=== PATIENT | female | born 1995 | race African-American/Black ===

== ENCOUNTER 2019-12-05 04:25 | Emergency (ER) | payer MEDICAID ==
[~2019-12-05] VITALS: Ht 152.4 cm; Wt 54.4 kg
--- NOTE | 2019-12-05 04:35 | NUR ---
PT SUZAN FROM HER FRIENDS HOUSE. PT STATED SHE IS SI, TOOK XANAX. -HI. PT PLACED IN HOSPITAL GOWN, ON MONITOR AND PULSE OX. VSS. BELONINGS PLACED IN LOCKER. SITTER AT BEDSIDE.
--- NOTE | 2019-12-05 04:41 | NUR ---
URINE PROVIDED, SENT TO LAB.
--- NOTE | 2019-12-05 04:48 | NUR ---
TURN OUT WORKER AT BEDSIDE FOR LABS.
[2019-12-05 05:10] LABS: BASOPHILS # (AUTO) 0.1 /CMM (0.0-0.2); BASOPHILS % (AUTO) 0.6 % (0.0-2.0); EOSINOPHILS % (AUTO) 0.2 % (0.0-6.0); HEMATOCRIT 40 % (33-45); HEMOGLOBIN 12.6 g/dL (11.5-14.8); LYMPHOCYTES # (AUTO) 4.3 /CMM (0.8-4.8); LYMPHOCYTES % (AUTO) 45.3 % (20.0-44.0); MEAN CORPUSCULAR HGB CONC 32 g/dl (31.0-36.0); MEAN CORPUSCULAR VOLUME 78 fL (82-100); MONOCYTES # (AUTO) 0.6 /CMM (0.1-1.30); MONOCYTES % (AUTO) 6.2 % (2.0-12.0); NEUTROPHILS # (AUTO) 4.5 /CMM (1.8-8.9); NEUTROPHILS % (AUTO) 47.7 % (43.0-81.0); PLATELET COUNT (AUTO) 409 /CMM (150-450); WHITE BLOOD COUNT (AUTO) 9.5 K/uL (4.3-11.0)
[2019-12-05 05:12] LABS: APPEARANCE,URINE CLEAR (CLEAR); BILIRUBIN,URINE NEGATIVE (NEGATIVE); BLOOD, URINE NEGATIVE Ery/uL (NEGATIVE); COLOR,URINE YELLOW (YELLOW); KETONES,URINE NEGATIVE (NEGATIVE); LEUKOCYTE ESTERASE ,URINE SMALL (NEGATIVE); NITRITE, URINE NEGATIVE (NEGATIVE); PH,URINE 6.5 (5.0-8.0); PROTEIN,URINE NEGATIVE (NEGATIVE); UGLUCOSE NEGATIVE (NEGATIVE); UROBILINOGEN,URINE 0.2 EU/dL (0.2)
[2019-12-05 05:18] LABS: CALCIUM, SERUM 9.7 mg/dL (8.5-10.1); CARBON DIOXIDE 26 mmol/L (21-32); CHLORIDE 101 mmol/L (98-107); CREATININE 0.9 mg/dL (0.6-1.3); GLUCOSE 86 mg/dL (74-106); POTASSIUM 3.6 mmol/L (3.5-5.1); SODIUM SERUM 136 mmol/L (136-145); UREA NITROGEN, BLOOD 12 mg/dL (7-18)
[2019-12-05 05:24] LABS: ALANINE AMINOTRANSFERASE 14 U/L (12-78); ALBUMIN 4.5 g/dL (3.4-5.0); ALCOHOL, BLOOD < 3 mg/dL (0-0); ALKALINE PHOSPHATASE 94 U/L (46-116); ASPARTATE AMINOTRANSFERASE 21 U/L (15-37); BILIRUBIN,DIRECT 0.2 mg/dL (0.0-0.2); BILIRUBIN,TOTAL 0.6 mg/dL (0.2-1.0); TOTAL PROTEIN, SERUM 10.9 g/dL (6.4-8.2)
[2019-12-05 05:30] LABS: ACETAMINOPHEN 0 ug/ml (10-30)
--- NOTE | 2019-12-05 05:35 | NUR ---
Patient is resting comfortably in bed. Easily aroused. VSS.
--- NOTE | 2019-12-05 05:42 | NUR ---
QUITA FROM CRISIS AT BEDSIDE TALKING TO PATIENT.
--- NOTE | 2019-12-05 05:49 | NUR ---
CLINICAL FAXED TO [facility] ADMISSION.
--- NOTE | 2019-12-05 07:13 | NUR ---
Patient is resting comfortably in bed with eyes closed. Easily aroused. VSS.
--- NOTE | 2019-12-05 07:29 | NUR ---
Assumed care report given by Slim PORTER per report no bed ,noted patient awake alert non distress @ this time no hallucination no agitaion follows command @ this time continue to monitor sitter @ bedside
--- NOTE | 2019-12-05 08:40 | NUR ---
FOOD TRAY PROVIDED.
--- NOTE | 2019-12-05 10:40 | NUR ---
CALLED [facility] [phone] STILL NO BEDS. PLEASE CHECK BACK AFTER [phone]
--- NOTE | 2019-12-05 11:28 | NUR ---
Julio Cesar victor in ED - 12/05/19 at 1130 by MAGALYS PT STATED SHE IS NOT SUICIDAL AND WANTS TO BE DISCHARGED. MD CULP.
--- NOTE | 2019-12-05 12:08 | NUR ---
PT STATED SHE IS NOT SUICIDAL AND WANTS TO BE DISCHARGED. MD AWARE.
--- NOTE | 2019-12-05 12:18 | NUR ---
Patient given written and verbal discharge instructions. Patient verbalizes understanding of instructions. Patient is ambulatory with steady gait. Refuses offer of senior living placement. Patient given list of available shelters in surrounding area.
[2019-12-05 12:19] VITALS: BP 120/88
== END 2019-12-05 12:20 | disposition home or self-care (01) ==
LOC: ER 04:27
DX: R45.851 Suicidal ideations (principal); F15.10 Other stimulant abuse, uncomplicated; Z60.2 Problems related to living alone
CPT/HCPCS: 36415; 80048; 80076; 80305; 80307; 80329; 81001; 84703; 85025; 99285; G0480; 81000-TC